=== PATIENT | female | born 2000 | race Caucasian/White ===

== ENCOUNTER 2019-02-08 07:29 | Emergency (ER) | payer BC ==
[2019-02-08 07:46] VITALS: BP 111/73
--- NOTE | 2019-02-08 08:00 | UC ---
Throat Pain/Nasal Romero HPI - HPI Summary HPI Summary: Patient is a 19-year-old female presenting with sore throat times one day and nausea and vomiting since morning. Notes "sores" in her throat and is concerned she has strep because she gets that often. Denies nasal congestion, ear pain, cough. Denies shortness of breath and wheezing. Notes nausea currently. Denies diarrhea and urinary symptoms. Patient denies any chance of . - History of Current Complaint Chief Complaint: UCGeneralIllness Stated Complaint: THROAT COMPLAINT Hx Obtained From: Patient Hx Last Menstrual Period: 01/2019 Onset/Duration: Sudden Onset Severity: Moderate Pain Intensity: 6 Pain Scale Used: 0-10 Numeric - Allergies/Home Medications Allergies/Adverse Reactions: Allergies Allergy/AdvReac Type Severity Reaction Status Date / Time No Known Allergies Allergy Verified 02/08/19 07:42 Home Medications: Home Medications Control Pill 1 dose PO DAILY 02/08/19 [History Confirmed 02/08/19] PMH/Surg Hx/FS Hx/Imm Hx - Surgical History Surgical History: Yes Surgery Procedure, Year, and Place: PORT access as child - Family History Known Family History: Positive: Non-Contributory - Social History Alcohol Use: Occasionally Substance Use Type: None Smoking Status (MU): Never Smoked Tobacco Review of Systems All Other Systems Reviewed And Are Negative: Yes Constitutional: Negative: Fever, Chills, Fatigue Eyes: Positive: Negative ENT: Positive: Sore Throat. Negative: Ear Ache, Nasal Discharge, Sinus Congestion, Sinus Pain/Tenderness Respiratory: Positive: Negative. Negative: Shortness Of Breath, Cough Cardiovascular: Positive: Negative Gastrointestinal: Positive: Vomiting, Nausea. Negative: Diarrhea Genitourinary: Positive: Negative Musculoskeletal: Positive: Myalgia Neurological: Positive: Negative Physical Exam Triage Information Reviewed: Yes Appearance: Well-Appearing, No Pain Distress, Well-Nourished Vital Signs: Initial Vital Signs Temp 98.8 F 02/08/19 07:43 Pulse 100 02/08/19 07:43 Resp 14 02/08/19 07:43 BP 111/73 02/08/19 07:43 Pulse Ox 98 02/08/19 07:43 Lab Results 02/08/19 Range/Units 07:47 Group A Strep Rapid Negative (Negative) Vital Signs Reviewed: Yes Eyes: Positive: Conjunctiva Clear ENT: Positive: Hearing grossly normal, Pharyngeal erythema, TMs normal, Uvula midline. Negative: Nasal congestion, Nasal drainage, TM bulging, TM dull, TM red, Sinus tenderness Neck exam: Normal Neck: Positive: Supple, Nontender, No Lymphadenopathy Respiratory Exam: Normal Respiratory: Positive: Lungs clear, Normal breath sounds, No respiratory distress, No accessory muscle use Cardiovascular Exam: Normal Cardiovascular: Positive: RRR Neurological: Positive: Alert Psychological: Positive: Age Appropriate Behavior Skin Exam: Normal Throat Pain/Nasal Course/Dx - Course Course Of Treatment: Discussed with patient that her strep test was negative today. She received Zofran here for her nausea. I offered her a prescription for Zofran to go home with and she declined it. Instructed patient to get plenty of rest and fluids. Instructed her to return or go to the emergency room if any symptoms worsen. Patient was understood and agreed to treatment plan. - Differential Dx/Diagnosis Provider Diagnosis: Sore throat, Nausea Discharge ED - Sign-Out/Discharge Documenting (check all that apply): Patient Departure All imaging exams completed and their final reports reviewed: No Studies - Discharge Plan Condition: Stable Disposition: HOME Patient Education Materials: Pharyngitis (ED), Acute Nausea and Vomiting (ED) Referrals: Care [facility] [Outside] - If Needed Additional Instructions: As discussed, you tested negative for strep throat today. You may take ibuprofen and/or tylenol as directed for fever and pain relief. You may use over the counter throat sprays or lozenges for symptomatic relief. Get plenty of rest and fluids. Follow up with your PCP or the [facility] as listed below if symptoms perist. Return or go to the emergency room if symptoms worsen or do not resolve in 10 days. - Billing Disposition and Condition Condition: STABLE Disposition: Home - Attestation Statements Provider Attestation: I was available for consult. This patient was seen by the EMMIE. The patient was not presented to, seen by, or examined by me. -Kevin
[2019-02-08] MEDS ORDERED: Ondansetron ODT TAB* 4 MG SL ONE (08:06)
== END 2019-02-08 08:16 | disposition home or self-care (01) ==
LOC: UCCORT 07:29
DX: J02.9 Acute pharyngitis, unspecified (principal); R11.2 Nausea with vomiting, unspecified; M79.10 Myalgia, unspecified site
CPT/HCPCS: 87651; 99202; A9270-GY; G0463

== ENCOUNTER 2019-02-28 08:51 | Emergency (ER) | payer BC ==
[2019-02-28 09:25] VITALS: BP 106/69
--- NOTE | 2019-02-28 09:41 | UC ---
Eye Complaint HPI - HPI Summary HPI Summary: 19-year-old woman comes in with a chief complaint of right eye irritation and discharge for the last day. No upper respiratory tract infection symptoms. No trauma. No eyelid swelling. - History of Current Complaint Chief Complaint: UCEye Stated Complaint: RIGHT EYE IRRITATION Time Seen by Provider: 02/28/19 09:19 Hx Last Menstrual Period: 2 days Pain Intensity: 0 - Allergies/Home Medications Allergies/Adverse Reactions: Allergies Allergy/AdvReac Type Severity Reaction Status Date / Time No Known Allergies Allergy Verified 02/28/19 09:25 Home Medications: Home Medications Saline Eye Rinse 1 dose RIGHT EYE BID PRN 02/28/19 [History Confirmed 02/28/19] PMH/Surg Hx/FS Hx/Imm Hx Previously Healthy: Yes - Surgical History Surgical History: Yes Surgery Procedure, Year, and Place: PORT access as child - Family History Known Family History: Positive: Non-Contributory - Social History Alcohol Use: Occasionally Substance Use Type: None Smoking Status (MU): Never Smoked Tobacco Review of Systems All Other Systems Reviewed And Are Negative: Yes Constitutional: Positive: Negative Skin: Positive: Negative Eyes: Positive: Drainage, Eye Redness ENT: Positive: Negative Respiratory: Positive: Negative Cardiovascular: Positive: Negative Gastrointestinal: Positive: Negative Motor: Positive: Negative Neurovascular: Positive: Negative Musculoskeletal: Positive: Negative Neurological: Positive: Negative Psychological: Positive: Negative Is Patient Immunocompromised?: No Physical Exam Triage Information Reviewed: Yes Appearance: Well-Appearing, No Pain Distress, Well-Nourished Vital Signs: Initial Vital Signs Temp 97.6 F 02/28/19 09:18 Pulse 73 02/28/19 09:18 Resp 18 02/28/19 09:18 BP 106/69 02/28/19 09:18 Pulse Ox 99 02/28/19 09:18 Vital Signs Reviewed: Yes Eyes: Positive: Conjunctiva Inflamed - RT, Discharge - RT, Other: - PERRLA EOMI. No foreign body appreciated on examination. The eyelids are not swollen. ENT: Negative: Nasal drainage, Muffled voice, Hoarse voice Neck: Positive: Supple Respiratory: Positive: No respiratory distress Musculoskeletal: Positive: Strength Intact, ROM Intact Neurological: Positive: Alert, Muscle Tone Normal Psychological: Positive: Age Appropriate Behavior Skin Exam: Normal Eye Complaint Course/Dx - Differential Dx/Diagnosis Provider Diagnosis: Right conjunctivitis Discharge ED - Sign-Out/Discharge Documenting (check all that apply): Patient Departure All imaging exams completed and their final reports reviewed: No Studies - Discharge Plan Condition: Stable Disposition: HOME Prescriptions: Tobramycin 0.3% OPHTH.MYRA* 1 drop RIGHT EYE Q4H #1 btl Patient Education Materials: Conjunctivitis (ED) Referrals: [facility] [Outside] [facility] [Outside] Additional Instructions: FOLLOW UP WITH YOUR DOCTOR IF NOT COMPLETELY IMPROVED. GET REEVALUATED SOONER IF NOT IMPROVING OR YOUR CONDITION WORSENS OR ANY QUESTIONS OR CONCERNS. - Billing Disposition and Condition Condition: STABLE Disposition: Home
== END 2019-02-28 09:47 | disposition home or self-care (01) ==
LOC: UCCORT 08:51
DX: H10.9 Unspecified conjunctivitis (principal)
CPT/HCPCS: 99212; G0463